=== PATIENT | female | born 1980 | race Caucasian/White ===

== ENCOUNTER 2024-01-12 11:13 | Outpatient (CLI) | payer BC ==
[2024-01-12] MEDS ORDERED: Iopamidol 370 76% 100 ML VIAL ONE (13:37)
== END 2024-01-12 11:14 | disposition home or self-care (01) ==
LOC: CT 11:13
PROVIDERS: ATTEND Physician Assistant Medical
DX: K21.9 Gastro-esophageal reflux disease without esophagitis (principal); K59.09 Other constipation; R10.13 Epigastric pain; N83.8 Other noninflammatory disorders of ovary, fallopian tube and broad ligament; Z90.710 Acquired absence of both cervix and uterus
CPT/HCPCS: 74177; Q9967

== ENCOUNTER 2024-04-23 16:44 | Emergency (ER) | payer BC ==
[~2024-04-23 16:44] MED LIST: Iopamidol-370 76% 500 ML MDV (1 ML CHARGE) ONE
[2024-04-23 17:41] LABS: #Basophils 0.08 10x3/uL (0.0-0.2); %Basophils 0.4 % (0.0-1.0); %Eosinophils 0.2 % (0.0-10.0); %Lymphocytes 3.9 % (21.0-51.0); %Monocytes 3.3 % (0.0-10.0); %Neutrophils 91.6 % (42.0-75.0); Hematocrit 49.2 % (36.0-47.0); Hemoglobin 16.3 g/dL (12.0-16.0); Mean Corpuscular HGB CONC 33.1 g/dL (32.0-36.0); Mean Corpuscular Hemoglobin 30.1 pg (27.0-31.0); Mean Corpuscular Volume 90.9 fL (78.0-98.0); Mean Platelet Volume 10.5 fL (7.4-10.4); Platelet Count 261 10x3/uL (130-400); RBC Distribution Width 12.7 % (11.5-14.5); Red Blood Cell (RBC) Count 5.41 mill/uL (4.20-5.40)
[2024-04-23 17:51] LABS: ALT (SGPT) 15 U/L (8-55); AST (SGOT) 15 U/L (5-34); Albumin 4.5 g/dL (3.5-5.0); Alkaline Phosphatase 47 U/L (40-110); Anion Gap 17 mmol/L (10-20); BUN (Urea Nitrogen) 23 mg/dL (7.0-18.7); Bilirubin, Total 1.1 mg/dL (0.2-1.2); Calc. Creatinine Clearance 0 mL/min (70-130); Carbon Dioxide 18 mmol/L (22-29); Chloride 107 mmol/L (98-107); Estimated GFR 92; Globulin 3.5 g/dL (2.4-3.5); Glucose 110 mg/dL (70-105); Lipase 25 U/L (8-78); Sodium 138 mmol/L (136-145)
[2024-04-23] MEDS ORDERED: Morphine 4 MG/ML VIAL ONE (18:11)
[2024-04-23] MEDS ORDERED: Ondansetron PF 4 MG/2 ML Vial ONE (18:11)
[2024-04-23 18:53] LABS: Troponin I Less than 0.010 ng/mL (< 0.028)
[2024-04-23] MEDS ORDERED: Ketorolac Tromethamine 30 MG (1 mL) VIAL ONE (20:39)
[2024-04-23 20:45] LABS: Bacteria/HPF None Seen HPF (None Seen); Bilirubin Negative (Negative); Blood, Urine Trace (Negative); CAUTI Indications for Culture Dysuria,urgency,freq; Clarity Clear (Clear); Glucose, Urine (Dipstick) Normal (Negative); Ketone, Urine Negative (Negative); Leukocyte Negative Leu/uL (Negative); Nitrite Negative (Negative); Protein, Urine (Dipstick) 20 mg/dL (Neg-Trace); RBC/HPF 0-3 HPF (0-3); Squamous Epithelial 0-3 HPF (0-3); Urobilinogen Normal mg/dL (Less than 2); WBC/HPF 0-3 HPF (0-3); pH, Urine 5.5 (5.0-9.0)
[2024-04-23 20:46] LABS: Specific Gravity, Urine Greater than 1.060 (1.002-1.036); Urine Culture Reflex No No
[2024-04-23] MEDS ORDERED: Dicyclomine 20 MG/2 ML VIAL ONE (21:07)
== END 2024-04-23 21:00 | disposition home or self-care (01) ==
LOC: ERS 16:44
DX: E86.0 Dehydration (principal); R11.2 Nausea with vomiting, unspecified
CPT/HCPCS: 36415; 74177; 80053; 81001; 83605; 83690; 84484; 85025; 87040; 96372; 96374; 96375; J1885; J2270; J2405; Q9967